=== PATIENT | female | born 1955 | race Two or more races ===

== ENCOUNTER 2025-03-31 16:23 | Emergency (ER) | payer OTHER ==
[~2025-03-31] VITALS: Ht 167.6 cm; Wt 89.8 kg
[2025-03-31] MEDS ORDERED: TRAMADOL HCL 50 MG TABLET PO STA (17:39)
[2025-03-31] MEDS ORDERED: TRAM1TAB98 PO (19:37)
== END 2025-03-31 21:24 | disposition home or self-care (01) ==
LOC: ER 16:24
DX: M54.2 Cervicalgia (principal); S49.82XA Other specified injuries of left shoulder and upper arm, initial encounter; W10.0XXA Fall (on)(from) escalator, initial encounter; Y93.89 Activity, other specified; Y92.89 Other specified places as the place of occurrence of the external cause; M25.562 Pain in left knee; Z88.0 Allergy status to penicillin; Z88.6 Allergy status to analgesic agent; I25.10 Atherosclerotic heart disease of native coronary artery without angina pectoris; I10 Essential (primary) hypertension; E11.9 Type 2 diabetes mellitus without complications